=== PATIENT | male | born 2005 | race Caucasian/White ===

== ENCOUNTER 2024-03-05 18:58 | Emergency (ER) | payer SELFPAY | END 2024-03-05 19:53 | disposition home or self-care (01) | LOC: MW.ED 18:58 | DX: Z02.89 Encounter for other administrative examinations (principal); S09.90XA Unspecified injury of head, initial encounter; Z75.8 Other problems related to medical facilities and other health care; W22.8XXA Striking against or struck by other objects, initial encounter | CPT/HCPCS: 99283 ==